=== PATIENT | male | born 1955 | race Hispanic/Latino ===

== ENCOUNTER 2018-01-15 15:23 | Emergency (ER) | payer SELFPAY | END 2018-01-15 17:04 | disposition home or self-care (01) | LOC: ERS 15:23 | DX: J01.90 Acute sinusitis, unspecified (principal); E11.9 Type 2 diabetes mellitus without complications | CPT/HCPCS: 99283 ==

== ENCOUNTER 2025-01-28 10:09 | Inpatient (IN) | payer MEDICAID, SELFPAY ==
[2025-01-28] MEDS ORDERED: Iopamidol-370 76% 500 ML MDV (1 ML CHARGE) ONE (10:27)
[2025-01-28 10:32] LABS: Actual Bicarbonate (HCO3v) 23.5 mEq/L (22-28); Analyzer IN Cardio ER; Base Excess -0.9 mEq/L (-2.0 to +3.0); Calcium, Ionized (venous) 1.11 mmol/L (1.16-1.32); Chloride (VBG) 101 mmol/L (98-106); Hematocrit-VBG 45 % (42.0-52.0); Hemoglobin (Hb) 15.2 g/dL (12.6-17.4); Potassium (VBG) 3.87 mmol/L (3.70-5.30); Sodium 139 mmol/L (133-146)
[2025-01-28 10:48] LABS: Hematocrit 42.4 % (42.0-52.0); Hemoglobin 14.1 g/dL (14.0-18.0); Mean Corpuscular Hemoglobin 30.5 pg (27.0-31.0); Mean Corpuscular Volume 91.8 fL (78.0-98.0); Platelet Count 189 10x3/uL (130-400); Red Blood Cell (RBC) Count 4.62 mill/uL (4.70-6.10); White Blood Cell (WBC) Count 4.86 10x3/uL (4.8-10.8)
[2025-01-28 11:12] LABS: Anion Gap 20 mmol/L (10-20); Carbon Dioxide 17 mmol/L (23-31); Chloride 105 mmol/L (98-107); Potassium 3.5 mmol/L (3.5-5.1); Sodium 138 mmol/L (136-145)
[2025-01-28] MEDS ORDERED: Ondansetron PF 4 MG/2 ML Vial ONE (11:12)
[2025-01-28 11:14] LABS: Anisocytosis SLIGHT = 6-15 cells HPF (0-5); Burr Cells SLIGHT = 2-5 cells HPF (0-1); Platelet Adequacy Comment Platelets Normal; Poikilocytosis SLIGHT = 6-15 cells HPF (0-5); Smudge Cells 1.9 %
[2025-01-28 11:16] LABS: ALT (SGPT) 329 U/L (Less than 45); AST (SGOT) 166 U/L (11-34); Albumin 3.5 g/dL (3.1-4.5); Alkaline Phosphatase 472 U/L (40-110); BUN (Urea Nitrogen) 22 mg/dL (8.4-25.7); Bilirubin, Total 5.3 mg/dL (0.3-1.2); Calc. Creatinine Clearance 0 mL/min (70-130); Calcium 9.0 mg/dL (7.8-10.44); Globulin 3.5 g/dL (2.4-3.5); Glucose 333 mg/dL (80-115)
[2025-01-28 11:45] LABS: Bacteria/HPF None Seen HPF (None Seen); CAUTI Indications for Culture Alt mental st,lethar; Glucose, Urine (Dipstick) Greater than 1000 mg/dL (Negative); Leukocyte Negative Leu/uL (Negative); Protein, Urine (Dipstick) 30 mg/dL (Neg-Trace); RBC/HPF 0-3 HPF (0-3); Specific Gravity, Urine 1.018 (1.002-1.036); Urine Culture Reflex No No; WBC/HPF 0-3 HPF (0-3)
[2025-01-28 15:14] LABS: Bilirubin, Direct 3.2 mg/dL (0.1-0.3)
[2025-01-28 15:15] LABS: Lipase 778.0 U/L (8-78)
[2025-01-28] MEDS ORDERED: Aspirin Chewable 81 MG TAB ONE (15:31)
[2025-01-28] MEDS ORDERED: Nitroglycerin 2% Ointment 1 INCH/1 GM Packet ONE (15:31)
[2025-01-28] MEDS ORDERED: fentaNYL PF 100 MCG/2 ML SYRINGE ONE (16:30)
[2025-01-28] MEDS ORDERED: Lidocaine 1% PF 5 ML VIAL ONE (16:30)
[2025-01-28 16:39] LABS: INR-International Normal Ratio 1.1; Prothrombin Time 14.6 sec (12.0-14.7)
[2025-01-28 16:40] LABS: PTT 37.2 sec (22.9-36.1)
[2025-01-28] MEDS ORDERED: Acetaminophen 500 MG TAB ONE (17:22)
[2025-01-28] MEDS ORDERED: INSULIN REGULAR IN 0.9 % NACL 100 ML IVPB SCH (18:00)
[2025-01-28] MEDS ORDERED: Rocuronium Bromide 10 MG/ML (10ML VIAL) ONE (21:21)
[2025-01-28] MEDS ORDERED: PHENYLEPHRINE-NS 100 MCG/ML 10 ML SYRINGE ONE (21:21)
[2025-01-28] MEDS ORDERED: PROPOFOL 200 MG/20 ML VIAL ONE (21:21)
[2025-01-28] MEDS ORDERED: SUGAMMADEX SODIUM 200 MG/2 ML VIAL ONE (22:30)
[2025-01-29 00:09] LABS: Anion Gap 15 mmol/L (10-20); BUN (Urea Nitrogen) 20 mg/dL (8.4-25.7); Calc. Creatinine Clearance 61 mL/min (70-130); Calcium 7.7 mg/dL (7.8-10.44); Carbon Dioxide 17 mmol/L (23-31); Chloride 113 mmol/L (98-107); Glucose 220 mg/dL (80-115); Potassium 3.2 mmol/L (3.5-5.1); Sodium 142 mmol/L (136-145)
[2025-01-29] MEDS ORDERED: Dextrose 50% Abboject 50 ML SYRINGE SLOW IVP PRN (00:41)
[2025-01-29] MEDS ORDERED: Glucagon 1 MG/ML KIT IM PRN (00:41)
[2025-01-29] MEDS ORDERED: Mag-Al 1200 mg/1200 mg/30 ML UDCUP PO PRN (00:42)
[2025-01-29 03:39] LABS: Hematocrit 37.3 % (42.0-52.0); Hemoglobin 12.5 g/dL (14.0-18.0); Mean Corpuscular Hemoglobin 31.2 pg (27.0-31.0); Mean Corpuscular Volume 93.0 fL (78.0-98.0); Platelet Count 143 10x3/uL (130-400); Red Blood Cell (RBC) Count 4.01 mill/uL (4.70-6.10); White Blood Cell (WBC) Count 4.83 10x3/uL (4.8-10.8)
[2025-01-29 03:52] LABS: ALT (SGPT) 268 U/L (Less than 45); AST (SGOT) 234 U/L (11-34); Albumin 2.5 g/dL (3.1-4.5); Alkaline Phosphatase 285 U/L (40-110); Anion Gap 15 mmol/L (10-20); BUN (Urea Nitrogen) 20 mg/dL (8.4-25.7); Bilirubin, Total 4.8 mg/dL (0.3-1.2); Calc. Creatinine Clearance 68 mL/min (70-130); Calcium 7.6 mg/dL (7.8-10.44); Carbon Dioxide 19 mmol/L (23-31); Chloride 114 mmol/L (98-107); Globulin 3.3 g/dL (2.4-3.5); Glucose 203 mg/dL (80-115); Potassium 3.2 mmol/L (3.5-5.1); Sodium 145 mmol/L (136-145)
[2025-01-29 04:21] LABS: #Basophils 0.03 10x3/uL (0.0-0.2); #Eosinophils Less than 0.03 10x3/uL (0.0-0.7); #Monocytes 0.32 10x3/uL (0.11-0.59); #Neutrophils 4.08 10x3/uL (1.40-6.50); %Basophils 0.6 % (0.0-1.0); %Eosinophils 0.0 % (0.0-10.0); %Lymphocytes 7.9 % (21.0-51.0); %Monocytes 6.6 % (0.0-10.0); %Neutrophils 84.5 % (42.0-75.0)
[2025-01-29] MEDS: Potassium Chloride 20 MEQ in Premix 1 BAG IVPB PRN (04:42)
[2025-01-29] MEDS ORDERED: PHOS-NAK 1 PKT PACK PO PRN (04:45)
[2025-01-29] MEDS ORDERED: Magnesium 2 GM/50 ML(in water) 2 GM in Premix 1 BAG IVPB PRN (04:45)
[2025-01-29] MEDS: Electrolyte Replacement Protocol 1 EACH FS ONE (05:58)
[2025-01-29 07:17] LABS: Anion Gap 16 mmol/L (10-20); BUN (Urea Nitrogen) 20 mg/dL (8.4-25.7); Calc. Creatinine Clearance 76 mL/min (70-130); Calcium 7.5 mg/dL (7.8-10.44); Carbon Dioxide 17 mmol/L (23-31); Chloride 115 mmol/L (98-107); Glucose 180 mg/dL (80-115); Potassium 3.7 mmol/L (3.5-5.1); Sodium 144 mmol/L (136-145)
[2025-01-29] MEDS: Enoxaparin 40 MG (0.4 mL) SYRINGE SC SCH (07:39)
[2025-01-29] MEDS: Mupirocin 1 GM TUBE NASAL DECOLONIZATION NASAL SCH (07:40)
[2025-01-29] MEDS ORDERED: Sodium Bicarbonate 2.5 MEQ/5 ML SDV ONE (14:52)
[2025-01-29] MEDS ORDERED: Lidocaine 1% w/Epinephrine 1:100K 20 ML VIAL ONE (14:52)
[2025-01-29] MEDS ORDERED: Magnesium Sulfate In Water 4 GM in Premix 1 BAG IVPB PRN (16:00)
[2025-01-30 03:38] LABS: Hematocrit 38.6 % (42.0-52.0); Hemoglobin 13.1 g/dL (14.0-18.0); Mean Corpuscular Hemoglobin 31.3 pg (27.0-31.0); Mean Corpuscular Volume 92.1 fL (78.0-98.0); Platelet Count 151 10x3/uL (130-400); Red Blood Cell (RBC) Count 4.19 mill/uL (4.70-6.10); White Blood Cell (WBC) Count 10.52 10x3/uL (4.8-10.8)
[2025-01-30 04:04] LABS: Lipase 316 U/L (8-78); Platelet Adequacy Comment Platelets Normal; Poikilocytosis SLIGHT = 6-15 cells HPF (0-5); Polychromasia SLIGHT = 2-3 cells HPF (0-2)
[2025-01-30 04:09] LABS: ALT (SGPT) 205 U/L (Less than 45); AST (SGOT) 116 U/L (11-34); Albumin 2.4 g/dL (3.1-4.5); Alkaline Phosphatase 277 U/L (40-110); Anion Gap 11 mmol/L (10-20); BUN (Urea Nitrogen) 24 mg/dL (8.4-25.7); Bilirubin, Total 3.1 mg/dL (0.3-1.2); Calc. Creatinine Clearance 67 mL/min (70-130); Calcium 8.0 mg/dL (7.8-10.44); Carbon Dioxide 20 mmol/L (23-31); Chloride 115 mmol/L (98-107); Globulin 3.6 g/dL (2.4-3.5); Glucose 356 mg/dL (80-115); Magnesium 2.1 mg/dL (1.6-2.6); Potassium 2.9 mmol/L (3.5-5.1); Sodium 143 mmol/L (136-145)
[2025-01-30] MEDS: Potassium Chloride 20 MEQ in Premix 1 BAG IVPB PRN (05:09)
[2025-01-30] MEDS: Ondansetron PF 4 MG/2 ML Vial IVP PRN (07:21)
[2025-01-30] MEDS: Insulin Glargine 30 UNITS/0.3 ML VIAL SC SCH (11:26)
[2025-01-30] MEDS: Potassium Bicarbonate/Cit Ac 20 MEQ TAB PO SCH (11:26)
[2025-01-31 06:09] LABS: #Basophils Less than 0.03 10x3/uL (0.0-0.2); #Eosinophils 0.03 10x3/uL (0.0-0.7); #Monocytes 0.51 10x3/uL (0.11-0.59); #Neutrophils 10.49 10x3/uL (1.40-6.50); %Basophils 0.2 % (0.0-1.0); %Eosinophils 0.3 % (0.0-10.0); %Lymphocytes 6.7 % (21.0-51.0); %Monocytes 4.3 % (0.0-10.0); %Neutrophils 88.2 % (42.0-75.0); Hematocrit 34.5 % (42.0-52.0); Hemoglobin 11.4 g/dL (14.0-18.0); Mean Corpuscular Hemoglobin 30.6 pg (27.0-31.0); Mean Corpuscular Volume 92.7 fL (78.0-98.0); Platelet Count 138 10x3/uL (130-400); Red Blood Cell (RBC) Count 3.72 mill/uL (4.70-6.10); White Blood Cell (WBC) Count 11.88 10x3/uL (4.8-10.8)
[2025-01-31 06:28] LABS: ALT (SGPT) 129 U/L (Less than 45); AST (SGOT) 45 U/L (11-34); Albumin 2.1 g/dL (3.1-4.5); Alkaline Phosphatase 214 U/L (40-110); Anion Gap 8 mmol/L (10-20); BUN (Urea Nitrogen) 18 mg/dL (8.4-25.7); Bilirubin, Total 1.9 mg/dL (0.3-1.2); Calc. Creatinine Clearance 89 mL/min (70-130); Calcium 7.8 mg/dL (7.8-10.44); Carbon Dioxide 24 mmol/L (23-31); Chloride 112 mmol/L (98-107); Globulin 3.6 g/dL (2.4-3.5); Glucose 206 mg/dL (80-115); Potassium 3.1 mmol/L (3.5-5.1); Sodium 141 mmol/L (136-145)
[2025-01-31 08:40] LABS: Magnesium 2.3 mg/dL (1.6-2.6)
[2025-01-31] MEDS: PHOS-NAK 1 PKT PACK PO PRN (09:16)
[2025-01-31] MEDS: Furosemide 40 MG TAB PO SCH (11:46)
[2025-01-31] MEDS: Insulin Glargine 30 UNITS/0.3 ML VIAL SC SCH (16:24)
[2025-01-31] MEDS ORDERED: glipiZIDE 10 MG TAB PO SCH (16:30)
[2025-01-31] MEDS: Carvedilol 3.125 MG TAB PO SCH (17:46)
[2025-01-31] MEDS: metFORMIN 500 MG TAB PO SCH (17:46)
[2025-01-31] MEDS: PHOS-NAK 1 PKT PACK PO SCH (20:43)
[2025-02-01 06:31] VITALS: BMI 29.2
[2025-02-01] MEDS: glipiZIDE 10 MG TAB PO SCH (08:46)
[2025-02-01] MEDS: Losartan 25 MG TAB PO SCH (08:46)
[2025-02-01] MEDS: Furosemide 20 MG TAB PO SCH (08:47)
[2025-02-01 08:49] LABS: #Basophils 0.04 10x3/uL (0.0-0.2); #Eosinophils 0.20 10x3/uL (0.0-0.7); #Monocytes 0.63 10x3/uL (0.11-0.59); #Neutrophils 7.61 10x3/uL (1.40-6.50); %Basophils 0.4 % (0.0-1.0); %Eosinophils 2.0 % (0.0-10.0); %Lymphocytes 16.4 % (21.0-51.0); %Monocytes 6.2 % (0.0-10.0); %Neutrophils 74.4 % (42.0-75.0); Hematocrit 34.0 % (42.0-52.0); Hemoglobin 11.5 g/dL (14.0-18.0); Mean Corpuscular Hemoglobin 30.9 pg (27.0-31.0); Mean Corpuscular Volume 91.4 fL (78.0-98.0); Platelet Count 157 10x3/uL (130-400); Red Blood Cell (RBC) Count 3.72 mill/uL (4.70-6.10); White Blood Cell (WBC) Count 10.22 10x3/uL (4.8-10.8)
[2025-02-01 09:04] LABS: ALT (SGPT) 94 U/L (Less than 45); AST (SGOT) 37 U/L (11-34); Albumin 2.0 g/dL (3.1-4.5); Alkaline Phosphatase 186 U/L (40-110); Anion Gap 13 mmol/L (10-20); BUN (Urea Nitrogen) 16 mg/dL (8.4-25.7); Bilirubin, Total 2.1 mg/dL (0.3-1.2); Calc. Creatinine Clearance 99 mL/min (70-130); Calcium 7.8 mg/dL (7.8-10.44); Carbon Dioxide 24 mmol/L (23-31); Chloride 106 mmol/L (98-107); Globulin 3.6 g/dL (2.4-3.5); Glucose 71 mg/dL (80-115); Potassium 3.0 mmol/L (3.5-5.1); Sodium 140 mmol/L (136-145)
[2025-02-01] MEDS: Sacubitril 49 MG/Valsartan 51 MG TABLET PO SCH (21:23)
[2025-02-02 05:31] LABS: Hematocrit 37.4 % (42.0-52.0); Hemoglobin 12.9 g/dL (14.0-18.0); Mean Corpuscular Hemoglobin 31.4 pg (27.0-31.0); Mean Corpuscular Volume 91.0 fL (78.0-98.0); Platelet Count 215 10x3/uL (130-400); Red Blood Cell (RBC) Count 4.11 mill/uL (4.70-6.10); White Blood Cell (WBC) Count 8.80 10x3/uL (4.8-10.8)
[2025-02-02 05:50] LABS: ALT (SGPT) 83 U/L (Less than 45); AST (SGOT) 44 U/L (11-34); Albumin 2.1 g/dL (3.1-4.5); Alkaline Phosphatase 234 U/L (40-110); Anion Gap 12 mmol/L (10-20); BUN (Urea Nitrogen) 18 mg/dL (8.4-25.7); Bilirubin, Total 2.6 mg/dL (0.3-1.2); Calc. Creatinine Clearance 99 mL/min (70-130); Calcium 8.4 mg/dL (7.8-10.44); Carbon Dioxide 23 mmol/L (23-31); Chloride 106 mmol/L (98-107); Globulin 4.0 g/dL (2.4-3.5); Glucose 179 mg/dL (80-115); Potassium 4.0 mmol/L (3.5-5.1); Sodium 137 mmol/L (136-145)
[2025-02-02 06:20] LABS: Plasma Cells 1 % (0-0); Platelet Adequacy Comment Platelets Normal; RBC Morphology Within Normal Limits; Smudge Cells 7.9 %
[2025-02-02 16:36] VITALS: BMI 28.8
[2025-02-03 05:17] LABS: Hematocrit 37.8 % (42.0-52.0); Hemoglobin 13.0 g/dL (14.0-18.0); Mean Corpuscular Hemoglobin 31.5 pg (27.0-31.0); Mean Corpuscular Volume 91.5 fL (78.0-98.0); Platelet Count 284 10x3/uL (130-400); Red Blood Cell (RBC) Count 4.13 mill/uL (4.70-6.10); White Blood Cell (WBC) Count 8.70 10x3/uL (4.8-10.8)
[2025-02-03 05:25] LABS: ALT (SGPT) 75 U/L (Less than 45); AST (SGOT) 57 U/L (11-34); Albumin 2.0 g/dL (3.1-4.5); Alkaline Phosphatase 258 U/L (40-110); Anion Gap 7 mmol/L (10-20); BUN (Urea Nitrogen) 23 mg/dL (8.4-25.7); Bilirubin, Total 1.8 mg/dL (0.3-1.2); Calc. Creatinine Clearance 88 mL/min (70-130); Calcium 8.1 mg/dL (7.8-10.44); Carbon Dioxide 21 mmol/L (23-31); Chloride 106 mmol/L (98-107); Globulin 3.9 g/dL (2.4-3.5); Glucose 168 mg/dL (80-115); Potassium 3.7 mmol/L (3.5-5.1); Sodium 130 mmol/L (136-145)
[2025-02-03 05:44] LABS: Nucleated RBC (Manual Ct) 1 % (0); Platelet Adequacy Comment Platelets Normal; Polychromasia SLIGHT = 2-3 cells HPF (0-2)
[2025-02-03] MEDS: HYDROcodone/Acetaminophen 10/325 mg Tablet PO PRN (05:57)
[2025-02-03] MEDS: Spironolactone 25 MG TAB PO SCH (09:12)
[2025-02-03] MEDS: Dapagliflozin Propanediol 10 MG TAB PO SCH (09:13)
[2025-02-03] MEDS ORDERED: Communication Order-Pharmacy FS SCH (19:45)
[2025-02-04 05:25] LABS: ALT (SGPT) 110 U/L (Less than 45); AST (SGOT) 104 U/L (11-34); Albumin 2.3 g/dL (3.1-4.5); Alkaline Phosphatase 352 U/L (40-110); Anion Gap 14 mmol/L (10-20); BUN (Urea Nitrogen) 25 mg/dL (8.4-25.7); Bilirubin, Total 1.6 mg/dL (0.3-1.2); Calc. Creatinine Clearance 69 mL/min (70-130); Calcium 8.9 mg/dL (7.8-10.44); Carbon Dioxide 20 mmol/L (23-31); Chloride 105 mmol/L (98-107); Globulin 4.2 g/dL (2.4-3.5); Glucose 116 mg/dL (80-115); Lipase 224 U/L (8-78); Potassium 4.0 mmol/L (3.5-5.1); Sodium 135 mmol/L (136-145)
[2025-02-04 05:35] LABS: Hematocrit 41.2 % (42.0-52.0); Hemoglobin 13.4 g/dL (14.0-18.0); Mean Corpuscular Hemoglobin 30.5 pg (27.0-31.0); Mean Corpuscular Volume 93.6 fL (78.0-98.0); Platelet Count 389 10x3/uL (130-400); Red Blood Cell (RBC) Count 4.40 mill/uL (4.70-6.10); White Blood Cell (WBC) Count 10.10 10x3/uL (4.8-10.8)
[2025-02-04 06:15] LABS: Burr Cells SLIGHT = 2-5 cells HPF (0-1); Plasma Cells 1 % (0-0); Platelet Adequacy Comment Platelets Normal; Smudge Cells 5.0 %
[2025-02-04] MEDS ORDERED: Heparin 10,000 UNITS/ 10 ML VIAL ONE (06:27)
[2025-02-04] MEDS ORDERED: Adenosine 6 mg (2 mL) VIAL ONE (06:27)
[2025-02-04] MEDS ORDERED: Nitroglycerin 50 MG/250 ML BOT 0 ML ONE (06:28)
[2025-02-04] MEDS ORDERED: Lidocaine 1% (PF) 30 ML VIAL ONE (06:28)
[2025-02-04] MEDS ORDERED: Nitroglycerin 0.4 MG TAB (25 Tab Bottle) SL PRN (07:49)
[2025-02-04] MEDS ORDERED: Iopamidol 370 76% 100 ML VIAL ONE (13:13)
[2025-02-04] MEDS: Acetaminophen/Codeine 30-300mg Tablet PO PRN (21:29)
[2025-02-05 04:58] LABS: #Basophils 0.04 10x3/uL (0.0-0.2); #Eosinophils 0.12 10x3/uL (0.0-0.7); #Monocytes 0.75 10x3/uL (0.11-0.59); #Neutrophils 6.02 10x3/uL (1.40-6.50); %Basophils 0.5 % (0.0-1.0); %Eosinophils 1.4 % (0.0-10.0); %Lymphocytes 14.1 % (21.0-51.0); %Monocytes 9.0 % (0.0-10.0); %Neutrophils 72.6 % (42.0-75.0); Hematocrit 39.1 % (42.0-52.0); Hemoglobin 13.3 g/dL (14.0-18.0); Mean Corpuscular Hemoglobin 31.6 pg (27.0-31.0); Mean Corpuscular Volume 92.9 fL (78.0-98.0); Platelet Count 458 10x3/uL (130-400); Red Blood Cell (RBC) Count 4.21 mill/uL (4.70-6.10); White Blood Cell (WBC) Count 8.30 10x3/uL (4.8-10.8)
[2025-02-05 05:13] LABS: ALT (SGPT) 113 U/L (Less than 45); AST (SGOT) 84 U/L (11-34); Albumin 2.4 g/dL (3.1-4.5); Alkaline Phosphatase 355 U/L (40-110); Anion Gap 15 mmol/L (10-20); BUN (Urea Nitrogen) 34 mg/dL (8.4-25.7); Bilirubin, Total 1.4 mg/dL (0.3-1.2); Calc. Creatinine Clearance 50 mL/min (70-130); Calcium 8.5 mg/dL (7.8-10.44); Carbon Dioxide 18 mmol/L (23-31); Chloride 105 mmol/L (98-107); Globulin 4.2 g/dL (2.4-3.5); Glucose 178 mg/dL (80-115); Potassium 4.3 mmol/L (3.5-5.1); Sodium 134 mmol/L (136-145)
[2025-02-06 04:49] LABS: #Basophils 0.05 10x3/uL (0.0-0.2); #Eosinophils 0.09 10x3/uL (0.0-0.7); #Monocytes 0.74 10x3/uL (0.11-0.59); #Neutrophils 6.56 10x3/uL (1.40-6.50); %Basophils 0.6 % (0.0-1.0); %Eosinophils 1.0 % (0.0-10.0); %Lymphocytes 12.4 % (21.0-51.0); %Monocytes 8.5 % (0.0-10.0); %Neutrophils 75.3 % (42.0-75.0); Hematocrit 38.9 % (42.0-52.0); Hemoglobin 13.0 g/dL (14.0-18.0); Mean Corpuscular Hemoglobin 31.0 pg (27.0-31.0); Mean Corpuscular Volume 92.8 fL (78.0-98.0); Platelet Count 506 10x3/uL (130-400); Red Blood Cell (RBC) Count 4.19 mill/uL (4.70-6.10); White Blood Cell (WBC) Count 8.71 10x3/uL (4.8-10.8)
[2025-02-06 05:40] LABS: ALT (SGPT) 119 U/L (Less than 45); AST (SGOT) 95 U/L (11-34); Albumin 2.4 g/dL (3.1-4.5); Alkaline Phosphatase 402 U/L (40-110); Anion Gap 16 mmol/L (10-20); BUN (Urea Nitrogen) 34 mg/dL (8.4-25.7); Bilirubin, Total 1.1 mg/dL (0.3-1.2); Calc. Creatinine Clearance 46 mL/min (70-130); Calcium 8.4 mg/dL (7.8-10.44); Carbon Dioxide 20 mmol/L (23-31); Chloride 104 mmol/L (98-107); Globulin 4.3 g/dL (2.4-3.5); Glucose 155 mg/dL (80-115); Potassium 4.4 mmol/L (3.5-5.1); Sodium 136 mmol/L (136-145)
[2025-02-06] MEDS: Albumin 25% 25 GM (100 mL) BOT IVPB SCH (11:03)
[2025-02-07] MEDS: Calcium Carbonate 500 MG ChewTAB PO PRN (00:55)
[2025-02-07 07:57] LABS: #Basophils 0.04 10x3/uL (0.0-0.2); #Eosinophils 0.09 10x3/uL (0.0-0.7); #Monocytes 0.60 10x3/uL (0.11-0.59); #Neutrophils 5.27 10x3/uL (1.40-6.50); %Basophils 0.6 % (0.0-1.0); %Eosinophils 1.3 % (0.0-10.0); %Lymphocytes 13.4 % (21.0-51.0); %Monocytes 8.5 % (0.0-10.0); %Neutrophils 74.8 % (42.0-75.0); Hematocrit 35.8 % (42.0-52.0); Hemoglobin 11.6 g/dL (14.0-18.0); Mean Corpuscular Hemoglobin 30.8 pg (27.0-31.0); Mean Corpuscular Volume 95.0 fL (78.0-98.0); Platelet Count 494 10x3/uL (130-400); Red Blood Cell (RBC) Count 3.77 mill/uL (4.70-6.10); White Blood Cell (WBC) Count 7.04 10x3/uL (4.8-10.8)
[2025-02-07 08:22] LABS: ALT (SGPT) 77 U/L (Less than 45); AST (SGOT) 58 U/L (11-34); Albumin 3.5 g/dL (3.1-4.5); Alkaline Phosphatase 318 U/L (40-110); Anion Gap 9 mmol/L (10-20); BUN (Urea Nitrogen) 25 mg/dL (8.4-25.7); Bilirubin, Total 1.2 mg/dL (0.3-1.2); Calc. Creatinine Clearance 61 mL/min (70-130); Calcium 9.0 mg/dL (7.8-10.44); Carbon Dioxide 20 mmol/L (23-31); Chloride 108 mmol/L (98-107); Globulin 3.4 g/dL (2.4-3.5); Glucose 125 mg/dL (80-115); Potassium 4.2 mmol/L (3.5-5.1); Sodium 133 mmol/L (136-145)
[2025-02-08 07:30] LABS: #Basophils 0.05 10x3/uL (0.0-0.2); #Eosinophils 0.10 10x3/uL (0.0-0.7); #Monocytes 0.66 10x3/uL (0.11-0.59); #Neutrophils 4.79 10x3/uL (1.40-6.50); %Basophils 0.7 % (0.0-1.0); %Eosinophils 1.5 % (0.0-10.0); %Lymphocytes 16.0 % (21.0-51.0); %Monocytes 9.8 % (0.0-10.0); %Neutrophils 70.8 % (42.0-75.0); Hematocrit 38.5 % (42.0-52.0); Hemoglobin 12.5 g/dL (14.0-18.0); Mean Corpuscular Hemoglobin 30.7 pg (27.0-31.0); Mean Corpuscular Volume 94.6 fL (78.0-98.0); Platelet Count 562 10x3/uL (130-400); Red Blood Cell (RBC) Count 4.07 mill/uL (4.70-6.10); White Blood Cell (WBC) Count 6.76 10x3/uL (4.8-10.8)
[2025-02-08 07:38] LABS: Hematocrit 39.1 % (42.0-52.0); Hemoglobin 12.5 g/dL (14.0-18.0); Mean Corpuscular Hemoglobin 30.9 pg (27.0-31.0); Mean Corpuscular Volume 96.5 fL (78.0-98.0); Platelet Count 546 10x3/uL (130-400); Red Blood Cell (RBC) Count 4.05 mill/uL (4.70-6.10); White Blood Cell (WBC) Count 6.48 10x3/uL (4.8-10.8)
[2025-02-08 07:47] LABS: ALT (SGPT) 76 U/L (Less than 45); AST (SGOT) 47 U/L (11-34); Albumin 3.4 g/dL (3.1-4.5); Alkaline Phosphatase 323 U/L (40-110); Anion Gap 9 mmol/L (10-20); BUN (Urea Nitrogen) 29 mg/dL (8.4-25.7); Bilirubin, Total 0.9 mg/dL (0.3-1.2); Calc. Creatinine Clearance 67 mL/min (70-130); Calcium 8.9 mg/dL (7.8-10.44); Carbon Dioxide 17 mmol/L (23-31); Chloride 108 mmol/L (98-107); Globulin 3.7 g/dL (2.4-3.5); Glucose 140 mg/dL (80-115); Potassium 4.6 mmol/L (3.5-5.1); Sodium 129 mmol/L (136-145)
[2025-02-08 08:46] VITALS: BP 114/63; TEMP 97.3
== END 2025-02-08 13:44 | disposition home or self-care (01) | DRG 871 ==
LOC: ERS 10:09 → SDC 21:15 → CCU 21:16 → PCU 01-29 14:05 → SURG A 01-30 18:51 → 2NO 02-03 16:33 → T4-B 02-06 16:31
PROVIDERS: ADMIT Student in an Organized Health Care Education/Training Program; ATTEND Internal Medicine
PROC: 3E03329 Introduction of Other Anti-infective into Peripheral Vein, Percutaneous Approach (ICD-10-PCS; principal; 2025-01-28)
PROC: 0FC98ZZ Extirpation of Matter from Common Bile Duct, Via Natural or Artificial Opening Endoscopic (ICD-10-PCS; principal; 2025-01-28)
PROC: 4A023N7 Measurement of Cardiac Sampling and Pressure, Left Heart, Percutaneous Approach (ICD-10-PCS; 2025-02-04)
PROC: B2151ZZ Fluoroscopy of Left Heart using Low Osmolar Contrast (ICD-10-PCS; 2025-02-04)
PROC: B2101ZZ Fluoroscopy of Single Coronary Artery using Low Osmolar Contrast (ICD-10-PCS; 2025-02-04)
DX: A41.50 Gram-negative sepsis, unspecified (principal); I21.A1 Myocardial infarction type 2; K85.90 Acute pancreatitis without necrosis or infection, unspecified; J96.01 Acute respiratory failure with hypoxia; K85.10 Biliary acute pancreatitis without necrosis or infection; I50.21 Acute systolic (congestive) heart failure; K80.30 Calculus of bile duct with cholangitis, unspecified, without obstruction; I42.8 Other cardiomyopathies; E83.39 Other disorders of phosphorus metabolism; I11.0 Hypertensive heart disease with heart failure; E87.6 Hypokalemia; E78.00 Pure hypercholesterolemia, unspecified; R65.20 Severe sepsis without septic shock; E11.65 Type 2 diabetes mellitus with hyperglycemia; Z79.899 Other long term (current) drug therapy; Z79.4 Long term (current) use of insulin; Z79.84 Long term (current) use of oral hypoglycemic drugs
CPT/HCPCS: 36415; 36416; 49406; 71045; 74018; 74177; 74330; 76705; 77002; 78472; 80053; 81001; 82010; 82248; 82805; 83036; 83605; 83690; 83735; 84100; 84145; 84484; 85025; 85610; 85730; 87040; 87070; 87077; 87086; 87149; 87186; 87205; 87428; 93005; 93306; 93458; 93798; 94760; 96361; 96365; 96375; 96376; 99152; A9560; C1729; C1769; C1887; C1894; J0153; J1644; J1650; J1815; J2003; J2270; J2272; J2405; J2543; J2704; J3010; J3480; J7030; J7050; P9047; Q9967